=== PATIENT | female | born 1940 | race Caucasian/White ===

== ENCOUNTER → 2017-02-12 | Day surgery (SDC) | payer MEDICARE, OTHER ==
[~2017-02-12] MED LIST: ALBUAER3 INH; BACL10TA PO; BUPIVACAINE HCL PF 0.5% 30 ML VIAL ONE; CARV6.252 PO; DICY20TA10 PO; ENDO7.5T10 PO; FLUT1INH7 INH; FLUT1SPR9 EACH NARE; FOLI400T PO; FURO1TAB62 PO; GABA300C5 PO; LANTUS2P SQ; LISI10TA3 PO; METF1000 PO; METH2.5T PO; MONT10TA2 PO; MORPHINE PUMP; NEXI40CA PO; NITR1CAP37 PO; OMNI1SUS LEFT EYE; POTA-243 PO; PROPOFOL 200 MG/20 ML AMP IV ONE; REST15CA PO; SYNT175T PO; TRIAMCINOLONE ACETONIDE 40 MG/ML VIAL I-ARTICULR ONE; VESI10TA PO; ZOCO10TA PO; ZOLO100T PO; methylPREDNISolone ACETATE 40 MG/ML VIAL I-ARTICULR ONE
--- NOTE | 2017-02-16 13:04 | M6 ---
cc: MARÍA COTE M.D. DATE 02/12/2017 DATE OF 1940 PROCEDURE Fluoroscopically guided bilateral sacroiliac joint injections PROCEDURE NOTE History and physical was completed and signed. Consent was signed. Procedure site was marked. Medications were listed and reconciled. Pain score was recorded. Allergies were noted. Time out was taken. Fluoroscopy time was recorded where applicable. Sedation was administered or directed by Dr. Cote. The patient was given oxygen. The patient was monitored by a registered nurse. Total procedure time was greater than 15 minutes. IV was started, blood pressure cuff, pulse oximeter and EKG were applied. The patient was placed in the prone position on a Jay table, sedated with small amounts of propofol titrated to effect. Vital signs were monitored and remained stable throughout the procedure. Sacral area was prepped with alcohol and 10% Betadine solution and draped with sterile drapes. Fluoroscopy was used shooting from medial to lateral to clearly visualize the posterior joint line of the bilateral sacroiliac joints. Separate sterile 5-inch 22-gauge spinal needles were advanced into these joints under fluoroscopic guidance. There was negative aspiration for blood or any other type of fluid and at each location, the patient was given 2 mL of 0.5% Marcaine, 20 mg of Depo-Medrol and 20 mg of Kenalog. Following the procedure, the patient was taken to the recovery room with stable vital signs neurologically intact. W. MD YANG Wright/SERGIO /9:17 AM /1:00 PM
== END | disposition home or self-care (01) ==
LOC: PHSDC 07:38
PROVIDERS: ATTEND Pain Medicine Interventional Pain Medicine
DX: M54.5 Low back pain (principal); M25.552 Pain in left hip; M25.551 Pain in right hip
CPT/HCPCS: 99152; G0260; J1030; J3301; 27096

== ENCOUNTER → 2018-02-23 | Day surgery (SDC) | payer MEDICARE, OTHER ==
[~2018-02-23] MED LIST changes: +ALBU1AER5 INH; +BENZ1CAP51 PO; -BUPIVACAINE HCL PF 0.5% 30 ML VIAL ONE; +IOHEXOL 180 MG/ML 20 ML VIAL (for RAD DIAG) EPIDURAL ONE; +LIDOCAINE HCL 1% 30 ML VIAL OTHER ONE; -LISI10TA3 PO; +MEDR4TAB PO; +MIRA50TA PO; -OMNI1SUS LEFT EYE; -POTA-243 PO; +PRED1SUS EACH EYE; -TRIAMCINOLONE ACETONIDE 40 MG/ML VIAL I-ARTICULR ONE; +TRIAMCINOLONE ACETONIDE 40 MG/ML VIAL NERV BLOCK ONE; -VESI10TA PO; +VESI10TA2 PO; +ZOFR4TAB PO; -ZOLO100T PO; -methylPREDNISolone ACETATE 40 MG/ML VIAL I-ARTICULR ONE
--- NOTE | 2018-02-23 11:58 | M6 ---
cc: Bryn Cote MD DATE: 02/23/2018 Corrected Copy: 02/28/18 PROCEDURE PERFORMED: Fluoroscopically guided left S1 epidural steroid injection. History and physical was completed and signed. Consent was signed. Procedure site was marked. Medications were listed and reconciled. Pain score was recorded. Allergies were noted. Time out was taken. Fluoroscopy time was recorded where applicable. Sedation was administered or directed by Dr. Cote. The patient was given oxygen. The patient was monitored by a registered nurse. Total procedure time was greater than 15 minutes. DESCRIPTION OF PROCEDURE: IV was started. Blood pressure cuff, pulse oximeter and EKG were applied. The patient was placed in the prone position on a Jay table, sedated with small amounts of propofol titrated to effect. Vital signs were monitored and remained stable throughout the procedure. The lumbar area and sacral area were prepped with alcohol and 10% Betadine solution and draped with sterile drapes. Fluoroscopy was used to visualize the left S1 neural foramen. A separate sterile 22-gauge 3.5-inch Chiba needle was advanced under fluoroscopic guidance through the foramen. There was negative aspiration for blood and any other type of fluid and the patient was given 3 mL of 1% Xylocaine, 3 mL of Omnipaque and 60 mg of Kenalog. Following this, the patient was taken to the recovery room with stable vital signs, neurologically intact. MD YANG Bruno/LORRAINE , 11:08 AM , 11:57 AM
== END | disposition home or self-care (01) ==
LOC: PHSDC 08:46
PROVIDERS: ATTEND Pain Medicine Interventional Pain Medicine
DX: M25.552 Pain in left hip (principal)
CPT/HCPCS: 64483; 99152; J3301; Q9965